=== PATIENT | male | born 1960 | race Caucasian/White ===

== ENCOUNTER 2022-12-10 12:31 | Emergency (ER) | payer OTHER ==
[2022-12-10] VITALS (22 sets, daily range): BP systolic 108–127; BP diastolic 68–79
[~2022-12-10] VITALS: Ht 182.9 cm; Wt 63.5 kg
[2022-12-10 14:50] LABS: BASO% 0.2 % (0-3); IMMATURE GRANULOCYTES 0.3 % (0.0-5.0); LYMPH% 10.1 % (15-41); MEAN CELL VOLUME 102.1 fL CALC (80.0-100.0); MEAN CORPUSCULAR HGB 36.1 pG CALC (26.0-32.0); MEAN CORPUSCULAR HGB CONC 35.3 g/dL CAL (32.0-36.0); MONO% 7.1 % (2-13); NEUT# 4.73 thou/uL (1.82-7.42); NEUT% 82.3 % (42-76); RED BLOOD COUNT 2.33 mill/uL (4.70-6.10); RED CELL DISTRI WIDTH 13.8 % (11.5-15.5)
[2022-12-10 14:52] LABS: HEMATOCRIT 23.8 % (39.0-50.0); HEMOGLOBIN 8.4 g/dl (14.0-18.0)
[2022-12-10 15:29] LABS: ALKALINE PHOSPHATASE 83 u/l (38-126); ANION GAP 7 (6-22 (CALC)); BILIRUBIN, TOTAL 0.3 mg/dL (0.0-1.4); BUN 38 mg/dL (9-20); BUN/CREATININE RATIO 41 (12-20 (CALC)); CARBON DIOXIDE 28 mmol/l (22-30); CHLORIDE 105 mmol/l (95-108); CREATININE 0.9 mg/dL (0.7-1.3); GFR FOR AFR.AMER. > 60 ML/MIN (>=60 (CALC)); GFR OTHER RACES > 60 ML/MIN (>=60 (CALC)); SGOT/AST 85 u/l (17-59); SODIUM 136 mmol/l (137-146); TOTAL PROTEIN 5.4 g/dL (6.3-8.2)
[2022-12-10 15:45] LABS: POTASSIUM 4.3 mmol/l (3.5-5.1)
== END 2022-12-10 19:35 | disposition short-term general hospital (02) | DRG 536 ==
LOC: ED 12:31
PROVIDERS: Nurse Practitioner
DX: S72.142A Displaced intertrochanteric fracture of left femur, initial encounter for closed fracture (principal); S83.015A Lateral dislocation of left patella, initial encounter; W01.0XXA Fall on same level from slipping, tripping and stumbling without subsequent striking against object, initial encounter; M25.562 Pain in left knee; M25.552 Pain in left hip; W19.XXXA Unspecified fall, initial encounter